=== PATIENT | male | born 1985 | race Caucasian/White ===

== ENCOUNTER 2017-07-18 09:48 | Emergency (ER) | payer OTHER ==
[~2017-07-18] VITALS: Wt 90.9 kg
[2017-07-18] MEDS ORDERED: SOD CHLORIDE 0.9% 1,000 ML IV STA (13:28)
[2017-07-18] MEDS ORDERED: morphine 10 MG INJ IV ONE (14:00)
[2017-07-18 14:22] LABS: BASOPHIL # 0.1 10^3/ul (0.0-0.1); BASOPHILS % 1.6 % (0.0-2.0); EOSINOPHILS # 0.5 10^3/ul (0.0-0.5); EOSINOPHILS % 7.3 % (0.0-7.0); HEMATOCRIT 46.4 % (42.0-52.0); HEMOGLOBIN 15.5 g/dl (14.0-18.0); LYMPHOCYTES # 2.3 10^3/ul (0.8-2.9); LYMPHOCYTES % 36.8 % (15.0-51.0); MEAN CORPUSCULAR HEMOGLOBIN 28.2 pg (29.0-33.0); MEAN CORPUSCULAR HGB CONC 33.4 g/dl (32.0-37.0); MEAN CORPUSCULAR VOLUME 84.4 fl (82.0-101.0); MEAN PLATELET VOLUME 9.4 fl (7.4-10.4); MONOCYTE # 0.6 10^3/ul (0.3-0.9); MONOCYTES % 9.1 % (0.0-11.0); NEUTROPHIL # 2.7 10^3/ul (1.6-7.5); NEUTROPHILS % 44.7 % (39.0-77.0); PLATELET COUNT 318 10^3/UL (140-415); RED CELL DISTRIBUTION WIDTH 12.3 % (11.5-14.5); WHITE BLOOD COUNT 6.1 10^3/ul (4.8-10.8)
[2017-07-18 14:41] LABS: ALBUMIN 4.2 g/dl (3.3-4.9); ALBUMIN/GLOBULIN RATIO 1.27; BILIRUBIN,INDIRECT 0.3 mg/dl (0-1.1); BILIRUBIN,TOTAL 0.3 mg/dl (0.2-1.3); CALCIUM 10.5 mg/dl (8.4-10.2); CREATININE 1.38 mg/dl (0.61-1.24); POTASSIUM 4.2 mmol/L (3.5-5.1); TOTAL PROTEIN 7.5 g/dl (6.1-8.1)
--- NOTE | 2017-07-18 15:10 | RADRPT ---
PROCEDURE: CT ABDOMEN AND PELVIS WITHOUT CONTRAST. CLINICAL INDICATION: Severe abdominal pain. Status post placement of left-sided renal stent. TECHNIQUE: CT scan of the abdomen and pelvis without contrast was performed on a multidetector hig h-resolution CT scanner. The patient was scanned without intravenous contrast. Coronal and sagittal reformatted images were obtained from the axial source images. Images were reviewed on a high-resol [employer] PACS workstation. The total exam CTDI equals 22.3 mGy and the total exam DLP equals 1314.7 mGy -cm. One or more of the following dose reduction techniques were used: Automated exposure control. Adjustment of the mA and/or kV according to patient size. Use of iterative reconstruction technique. DICOM images are available COMPARISON: None FINDINGS: CT abdomen: The lung bases are clear. The heart size is within limits. There is no significant pericardial effus ion. Hepatic morphology is within normal limits. Gallbladder is unremarkable. No evidence of intrahepatic or extrahepatic biliary dilatation. The spleen and pancreas are within normal limits. Both adrenal glands are within normal limits. Both kidneys are and normal anatomic position. There is a 3.7 mm and 4.4 mm non-obstructing stone wi thin the mid pole of the right kidney. Left-sided double-J ureteric stent is identified, which appea rs to be in place. No evidence of obstruction or hydronephrosis within both kidneys. No evidence of perinephric fluid collections. The visualized GI tract demonstrates normal caliber loops of small large bowel. No obstruction. Stoo l filled loops of large bowel suggestive of constipation. The appendix is within limits. The unenhanced aorta is unremarkable. There is retroperitoneal lymphadenopathy. CT pelvis: Bladder is identified, containing a double-J ureteric stent. There is mild sigmoid diverticulosis. N o significant free fluid. No same pelvic lymphadenopathy. The visualized osseous structures appear to be within limits. IMPRESSION: 1. 3.7 and 4.4 mm non-obstructing stones within the right kidney. No evidence of obstruction or hydr onephrosis. 2. Left-sided double-J ureteric stent in place. No evidence of obstruction or hydronephrosis. No adeel dence of perinephric fluid. 3. No evidence of bowel obstruction. The appendix is within normal limits. 4. No evidence of free fluid or free air. No gross focal fluid collections. RPTAT: AARR Dulce Gonzalez Physician Date Time Electronically viewed and signed by Dulce Gonzalez Physician on 07/18/2017 15:09 JL/
[2017-07-18 16:51] LABS: ADD UMIC YES; UR ASCORBIC ACID NEGATIVE (NEGATIVE); UR BILIRUBIN (Dip) NEGATIVE (NEGATIVE); UR BLOOD (Dip) 3+ mg/dL (NEGATIVE); UR CLARITY CLEAR (CLEAR); UR COLOR STRAW (YELLOW); UR GLUCOSE (Dip) NEGATIVE (NEGATIVE); UR KETONES (Dip) NEGATIVE (NEGATIVE); UR LEUKOCYTE ESTERASE (Dip) 1+ Leu/ul (NEGATIVE); UR NITRITE (Dip) NEGATIVE (NEGATIVE); UR RBC > 182 /HPF (0-5); UR SPECIFIC GRAVITY (Dip) 1.004 (1.003-1.030); UR TOTAL PROTEIN (Dip) 1+ mg/dl (NEGATIVE); UR UROBILINOGEN (Dip) NEGATIVE (NEGATIVE)
[2017-07-18] MEDS ORDERED: POLY17PO6 PO (16:58)
[2017-07-18] MEDS ORDERED: HYDR-902 PO (16:58)
[2017-07-18] MEDS ORDERED: ONDA4TAB14 PO (16:58)
[2017-07-18] MEDS ORDERED: morphine 4 MG/ML VIAL IV STA (17:12)
--- NOTE | 2017-07-18 17:28 | ERD ---
ER Documentation Chief Complaint Chief Complaint hematuria w blood clots and dysurea s/p kidney stent sat. HPI This 32-year-old male presents with hematuria passing some blood clots 4 days after he had a stent placed at an outside hospital. Renal stent was placed on his left side because of an 8 mm stone. He comes to this hospital because both his insurance prefers him to come to this hospital in did not get urology follow -up from the other facility. He had no infection at that time and is placed on antibiotic anyway treat is still taking his creatinine at that time was 1.8. He has some pain right lateral abdomen but mostly came because he is passing clots and is not sure if he still should be. He is coming by his father. ROS All systems reviewed and are negative except as per history of present illness. Medications Home Meds Active Scripts Polyethylene Glycol* (Miralax*) 17 Gm Powd.pack, 17 GM PO DAILY for CONSTIPATION , #7 Prov:VIET ANN DO 07/18/17 Ondansetron (Ondansetron Odt) 4 Mg Tab.rapdis, 4 MG PO Q6H Y for NAUSEA AND/OR VOMITING, #10 TAB Prov:VIET ANN DO 07/18/17 Hydrocodone/Acetaminophen ([place] 10-325 Tablet) 1 Each Tablet, 1 EACH PO Q6, # 20 TAB Prov:VIET ANN DO 07/18/17 PMhx/Soc History of Surgery: No Anesthesia Reaction: No Hx Neurological Disorder: No Hx Respiratory Disorders: No Hx Cardiac Disorders: No Hx Psychiatric Problems: No Hx Miscellaneous Medical Probl: Yes (renal stone (stent placed)) Hx Alcohol Use: No Hx Substance Use: No Hx Tobacco Use: No Smoking Status: Never smoker Physical Exam Vitals Vital Signs Date Time Temp Pulse Resp B/P Pulse Ox O2 Delivery O2 Flow Rate FiO2 07/18/17 15:50 76 18 133/83 98 Room Air 07/18/17 09:52 98.2 89 20 138/96 97 Physical Exam Const: [] Head: Atraumatic Eyes: Normal Conjunctiva ENT: Normal External Ears, Nose and Mouth. Neck: Full range of motion..~ No meningismus. Resp: Clear to auscultation bilaterally Cardio: Regular rate and rhythm, no murmurs Abd: Soft, non tender, non distended. Normal bowel sounds Skin: No petechiae or rashes Back: No midline or flank tenderness Ext: No cyanosis, or edema Neur: Awake and alert Psych: Normal Mood and Affect Result Diagram: 07/18/17 1356 07/18/17 1356 Results 24 hrs Laboratory Tests Test 07/18/17 13:56 07/18/17 16:20 White Blood Count 6.110^3/ul Red Blood Count 5.5010^6/ul Hemoglobin 15.5g/dl Hematocrit 46.4% Mean Corpuscular Volume 84.4fl Mean Corpuscular Hemoglobin 28.2pg Mean Corpuscular Hemoglobin Concent 33.4g/dl Red Cell Distribution Width 12.3% Platelet Count 53346^3/UL Mean Platelet Volume 9.4fl Neutrophils % 44.7% Lymphocytes % 36.8% Monocytes % 9.1% Eosinophils % 7.3% Basophils % 1.6% Nucleated Red Blood Cells % 0.0/100WBC Neutrophils # 2.710^3/ul Lymphocytes # 2.310^3/ul Monocytes # 0.610^3/ul Eosinophils # 0.510^3/ul Basophils # 0.110^3/ul Nucleated Red Blood Cells # 0.010^3/ul Sodium Level 139mmol/L Potassium Level 4.2mmol/L Chloride Level 97mmol/L Carbon Dioxide Level 33mmol/L Anion Gap 13 Blood Urea Nitrogen 13mg/dl Creatinine 1.38mg/dl Glucose Level 91mg/dl Calcium Level 10.5mg/dl Total Bilirubin 0.3mg/dl Direct Bilirubin 0.00mg/dl Indirect Bilirubin 0.3mg/dl Aspartate Amino Transf (AST/SGOT) 81IU/L Alanine Aminotransferase (ALT/SGPT) 113IU/L Alkaline Phosphatase 45IU/L Total Protein 7.5g/dl Albumin 4.2g/dl Globulin 3.30g/dl Albumin/Globulin Ratio 1.27 Lipase 88U/L Urine Color STRAW Urine Clarity CLEAR Urine pH 6.0 Urine Specific [place] 1.004 Urine Ketones NEGATIVEmg/dL Urine Nitrite NEGATIVEmg/dL Urine Bilirubin NEGATIVEmg/dL Urine Urobilinogen NEGATIVEmg/dL Urine Leukocyte Esterase 1+Mar[place]ruz/ul Urine Microscopic RBC > 182/HPF Urine Microscopic WBC 1/HPF Urine Hemoglobin 3+mg/dL Urine Glucose NEGATIVEmg/dL Urine Total Protein 1+mg/dl Current Medications Medications (Trade) Dose Ordered Sig/Martell Route PRN Reason Start Time Stop Time Status Last Admin Dose Admin Sodium Chloride (NS) 1,000 ml @ 1,000 mls/hr Q1H STAT IV 07/18/17 13:28 07/18/17 14:27 DC 07/18/17 14:08 Morphine Sulfate (morphine) 6 mg ONCE ONCE IV 07/18/17 14:00 07/18/17 14:01 DC 07/18/17 14:08 Morphine Sulfate (morphine) 4 mg ONCE STAT IV 07/18/17 17:12 07/18/17 17:13 DC 07/18/17 17:18 Procedures/MDM Hematuria is expected after procedure as well as some pain. No signs of anemia after passing clots for 4-1/2 days. Patient states that he stopped taking the [place] at home because it made him sleepy however was controlling the pain. Pain is easily controlled by morphine in the emergency room. I am going to discharge him with [place] 10 as well as Zofran as needed nausea. He and his father are already in the process of obtaining urology follow-up and were told it would take 7 days for the referral. Creatinine is decreasing fortunately. Patient feels much better here. No signs of 8 mm stone which may have ready past. Patient feels comfortable going home currently. I told him to return to emergency room for any concerning change. CT abdomen pelvis interpretation: Right-sided renal stones with left renal stent in place. No bowel obstruction, no free air, no abnormal fluid collection , no fractures. Departure Diagnosis: Primary Impression: Post-operative pain Additional Impressions: Hematuria Renal insufficiency Condition: Stable Patient Instructions: Hematuria Additional Instructions: Call your primary care doctor TOMORROW for an appointment during the next 2-3 days.See the doctor sooner or return here if your condition worsens before your appointment time. VIET ANN DO Jul 18, 2017 17:28
[2017-07-18 17:31] VITALS: BP 116/76; PULSE 78; RESP 18
== END 2017-07-18 17:35 | disposition home or self-care (01) ==
LOC: E/R 09:48
DX: G89.18 Other acute postprocedural pain (principal); N28.9 Disorder of kidney and ureter, unspecified
CPT/HCPCS: 36415; 74176; 80053; 81001; 83690; 85025; 87086; 96374; 96375; J2270; J7030; Z7502

== ENCOUNTER 2017-07-28 16:01 | Emergency (ER) | payer OTHER ==
[~2017-07-28] VITALS: Ht 177.8 cm; Wt 108.7 kg
[~2017-07-28 16:01] MED LIST: HYDR-902 PO; ONDA4TAB14 PO; POLY17PO6 PO
[2017-07-28 16:08] VITALS: Ht 177.8 cm; Wt 108.7 kg
[2017-07-28] MEDS ORDERED: KETOROLAC 30 MG INJ IV STA (16:49)
[2017-07-28] MEDS ORDERED: morphine 4 MG/ML VIAL IV STA (16:49)
[2017-07-28] MEDS ORDERED: SOD CHLORIDE 0.9% 1,000 ML IV STA (16:49)
[2017-07-28] MEDS ORDERED: ONDANSETRON 4 MG INJ IV STA (16:49)
[2017-07-28 17:42] LABS: BASOPHIL # 0.1 10^3/ul (0.0-0.1); BASOPHILS % 1.4 % (0.0-2.0); EOSINOPHILS # 0.4 10^3/ul (0.0-0.5); EOSINOPHILS % 4.5 % (0.0-7.0); HEMATOCRIT 44.5 % (42.0-52.0); HEMOGLOBIN 14.8 g/dl (14.0-18.0); LYMPHOCYTES # 3.5 10^3/ul (0.8-2.9); LYMPHOCYTES % 42.8 % (15.0-51.0); MEAN CORPUSCULAR HEMOGLOBIN 28.1 pg (29.0-33.0); MEAN CORPUSCULAR HGB CONC 33.3 g/dl (32.0-37.0); MEAN CORPUSCULAR VOLUME 84.4 fl (82.0-101.0); MEAN PLATELET VOLUME 9.5 fl (7.4-10.4); MONOCYTE # 0.7 10^3/ul (0.3-0.9); MONOCYTES % 8.5 % (0.0-11.0); NEUTROPHIL # 3.4 10^3/ul (1.6-7.5); NEUTROPHILS % 42.4 % (39.0-77.0); PLATELET COUNT 347 10^3/UL (140-415); RED BLOOD COUNT 5.27 10^6/ul (4.70-6.10); RED CELL DISTRIBUTION WIDTH 12.3 % (11.5-14.5); WHITE BLOOD COUNT 8.1 10^3/ul (4.8-10.8)
[2017-07-28 17:46] LABS: ADD UMIC YES; INR 0.89; PROTIME 12.1 Sec (11.9-14.9); PT RATIO 0.9; UR ASCORBIC ACID NEGATIVE (NEGATIVE); UR BACTERIA FEW /HPF (NONE SEEN); UR BILIRUBIN (Dip) NEGATIVE (NEGATIVE); UR BLOOD (Dip) 3+ mg/dL (NEGATIVE); UR CLARITY SLIGHTLY CLOUDY (CLEAR); UR COLOR YELLOW (YELLOW); UR GLUCOSE (Dip) NEGATIVE (NEGATIVE); UR KETONES (Dip) NEGATIVE (NEGATIVE); UR LEUKOCYTE ESTERASE (Dip) TRACE Leu/ul (NEGATIVE); UR NITRITE (Dip) NEGATIVE (NEGATIVE); UR RBC > 182 /HPF (0-5); UR SPECIFIC GRAVITY (Dip) 1.018 (1.003-1.030); UR TOTAL PROTEIN (Dip) 2+ mg/dl (NEGATIVE); UR UROBILINOGEN (Dip) NEGATIVE (NEGATIVE)
[2017-07-28 17:58] LABS: ALBUMIN 3.9 g/dl (3.3-4.9); ALBUMIN/GLOBULIN RATIO 1.39; BILIRUBIN,INDIRECT 0.1 mg/dl (0-1.1); BILIRUBIN,TOTAL 0.1 mg/dl (0.2-1.3); CALCIUM 9.2 mg/dl (8.4-10.2); CREATININE 1.37 mg/dl (0.61-1.24); POTASSIUM 3.9 mmol/L (3.5-5.1); TOTAL PROTEIN 6.7 g/dl (6.1-8.1)
--- NOTE | 2017-07-28 18:59 | RADRPT ---
PROCEDURE: CT SCAN OF THE ABDOMEN AND PELVIS NON CONTRAST CLINICAL INDICATION: Left flank pain TECHNIQUE: Utilizing the multi-slice spiral CT scanner, Transaxial images were obtained through the abdomen and pelvis without contrast. Additional sagittal, coronal, MPR images were also obtained. DICOM images are available Radiation Dose: CTDI vol 22.02 mGy, DLP 1292.15 mGy-cm. One of more of the following dose reduction techniques were utilized: -automatic exposure control -adjustment of the mA and/or kV according to patient size -Use of iterative reconstruction technique Contrast used: None COMPARISON: None FINDINGS: Limited slices through the lung bases are clear. CT Abdomen Enlarged fatty liver, distended stomach, normal spleen, enlarged pancreas is seen no peripancreatic fluid collection or mass lesions noted. Gallbladder appears unremarkable. Right kidney demonstrates two parenchymal 2 mm stones in the renal sinus without hydronephrosis. Left kidney J stent position is unchanged. There is a 4 mm calcification in the lower pole nathaniel. No hydronephrosis noted. Modera te stool noted in the large bowel with no free air or ascites seen. CT pelvis: Distal end of J stent is noted in the bladder. Rectosigmoid colon, prostate appears unre markable. Large amount of intra-abdominal fat is seen. No retroperitoneal adenopathy noted. No pelvic ascites seen. IMPRESSION: Unchanged right upper pole renal parenchymal stones without hydronephrosis Left J stent in good position. 4 mm calcification lower pole nathaniel seen. RPTAT: AAOO Physician Eduar Date Time Electronically viewed and signed by Physician Eduar on 07/28/2017 18:59 MB/
[2017-07-28] MEDS ORDERED: ONDA4TAB14 PO (19:40)
[2017-07-28] MEDS ORDERED: TRAM50TA2 PO (19:40)
[2017-07-28] MEDS ORDERED: CEPH-443 PO (19:40)
[2017-07-28 19:54] VITALS: BP 129/84; PULSE 80; RESP 20
--- NOTE | 2017-07-28 21:24 | ERD ---
ER Documentation Chief Complaint Chief Complaint lt flank pain HPI This patient is a 32-year-old male with past medical history of kidney stones with recent stent placement on the right, presenting for bilateral flank pain which is constant. Associated with hematuria. The patient was here 10 days ago for similar complaints and was found that he had nonobstructing stones bilaterally and slightly elevated creatinine. The patient has no other complaints currently. ROS All systems reviewed and are negative except as per history of present illness. Medications Home Meds Active Scripts Cephalexin* (Keflex*) 500 Mg Capsule, 500 MG PO TID for 7 Days, #21 CAP Prov:ARCHIE ODOM PA-C 07/28/17 Ondansetron (Ondansetron Odt) 4 Mg Tab.rapdis, 4 MG PO Q6H Y for NAUSEA AND/OR VOMITING, #10 TAB Prov:ARCHIE ODOM PA-C 07/28/17 Tramadol HCl (Tramadol HCl) 50 Mg Tablet, 50 MG PO Q4 Y for PAIN, #20 TAB Prov:ARCHIE ODOM PA-C 07/28/17 Polyethylene Glycol* (Miralax*) 17 Gm Powd.pack, 17 GM PO DAILY for CONSTIPATION , #7 Prov:VIET ANN DO 07/18/17 Ondansetron (Ondansetron Odt) 4 Mg Tab.rapdis, 4 MG PO Q6H Y for NAUSEA AND/OR VOMITING, #10 TAB Prov:VIET ANN DO 07/18/17 Hydrocodone/Acetaminophen ([place] 10-325 Tablet) 1 Each Tablet, 1 EACH PO Q6, # 20 TAB Prov:VIET ANN DO 07/18/17 Allergies Allergies: Coded Allergies: No Known Allergy (Unverified , 07/28/17) PMhx/Soc Medical and Surgical Hx: pt denies Surgical Hx History of Surgery: No Anesthesia Reaction: No Hx Neurological Disorder: No Hx Respiratory Disorders: No Hx Cardiac Disorders: No Hx Psychiatric Problems: No Hx Miscellaneous Medical Probl: Yes (renal stone (stent placed)) Hx Alcohol Use: No Hx Substance Use: No Hx Tobacco Use: No Smoking Status: Never smoker Physical Exam Vitals Vital Signs Date Time Temp Pulse Resp B/P Pulse Ox O2 Delivery O2 Flow Rate FiO2 07/28/17 19:54 80 20 129/84 98 Room Air 07/28/17 16:08 97.8 94 18 158/106 96 Physical Exam Const: Nontoxic, well appearing male in no acute distress. Head: Atraumatic Eyes: Normal Conjunctiva ENT: Normal External Ears, Nose and Mouth. Neck: Full range of motion..~ No meningismus. Resp: Clear to auscultation bilaterally Cardio: Regular rate and rhythm, no murmurs Abd: Soft, non tender, non distended. Normal bowel sounds. No McBurney's point tenderness. No rebound tenderness or guarding. Skin: No petechiae or rashes Back: Bilateral flank tenderness to palpation. Ext: No cyanosis, or edema Neur: Awake and alert Psych: Normal Mood and Affect Result Diagram: 07/28/17 1710 07/28/17 171 Results 24 hrs Laboratory Tests Test 07/28/17 17:10 White Blood Count 8.110^3/ul Red Blood Count 5.2710^6/ul Hemoglobin 14.8g/dl Hematocrit 44.5% Mean Corpuscular Volume 84.4fl Mean Corpuscular Hemoglobin 28.1pg Mean Corpuscular Hemoglobin Concent 33.3g/dl Red Cell Distribution Width 12.3% Platelet Count 99963^3/UL Mean Platelet Volume 9.5fl Neutrophils % 42.4% Lymphocytes % 42.8% Monocytes % 8.5% Eosinophils % 4.5% Basophils % 1.4% Nucleated Red Blood Cells % 0.0/100WBC Neutrophils # 3.410^3/ul Lymphocytes # 3.510^3/ul Monocytes # 0.710^3/ul Eosinophils # 0.410^3/ul Basophils # 0.110^3/ul Nucleated Red Blood Cells # 0.010^3/ul Prothrombin Time 12.1Sec Prothrombin Time Ratio 0.9 INR International Normalized Ratio 0.89 Activated Partial Thromboplast Time 27.0Sec Urine Color YELLOW Urine Clarity SLIGHTLY CLOUDY Urine pH 6.0 Urine Specific [place] 1.018 Urine Ketones NEGATIVEmg/dL Urine Nitrite NEGATIVEmg/dL Urine Bilirubin NEGATIVEmg/dL Urine Urobilinogen NEGATIVEmg/dL Urine Leukocyte Esterase TRACELeu/ul Urine Microscopic RBC > 182/HPF Urine Microscopic WBC 63/HPF Urine Bacteria FEW/HPF Urine Hemoglobin 3+mg/dL Urine Glucose NEGATIVEmg/dL Urine Total Protein 2+mg/dl Sodium Level 139mmol/L Potassium Level 3.9mmol/L Chloride Level 101mmol/L Carbon Dioxide Level 28mmol/L Anion Gap 14 Blood Urea Nitrogen 14mg/dl Creatinine 1.37mg/dl Glucose Level 146mg/dl Calcium Level 9.2mg/dl Total Bilirubin 0.1mg/dl Direct Bilirubin 0.00mg/dl Indirect Bilirubin 0.1mg/dl Aspartate Amino Transf (AST/SGOT) 41IU/L Alanine Aminotransferase (ALT/SGPT) 68IU/L Alkaline Phosphatase 48IU/L Total Protein 6.7g/dl Albumin 3.9g/dl Globulin 2.80g/dl Albumin/Globulin Ratio 1.39 Lipase 148U/L Current Medications Medications (Trade) Dose Ordered Sig/Martell Route PRN Reason Start Time Stop Time Status Last Admin Dose Admin Sodium Chloride (NS) 1,000 ml @ 1,000 mls/hr Q1H STAT IV 07/28/17 16:49 07/28/17 17:48 DC 07/28/17 17:17 Morphine Sulfate (morphine) 4 mg ONCE STAT IV 07/28/17 16:49 07/28/17 16:50 DC 07/28/17 17:18 Ondansetron HCl (Zofran Inj) 4 mg ONCE STAT IV 07/28/17 16:49 07/28/17 16:50 DC 07/28/17 17:18 Ketorolac Tromethamine (Toradol) 30 mg ONCE STAT IV 07/28/17 16:49 07/28/17 16:50 DC 07/28/17 17:18 Procedures/MDM Workup recently within the past 10 days for similar symptoms. The patient was placed on a stretcher, IV line established. The patient is given IV fluids, IV morphine, IV Zofran This is a 32-year-old male presenting to the emergency department complains of bilateral flank pain. The patient did have, IV Toradol. He was feeling significantly improved on reevaluation. CBC showed no signs of leukocytosis or anemia. Chemistry panel was within normal limits, except for creatinine which was elevated at 1.37, this is down trending since last visit. Urinalysis is concerning for mild, uncomplicated urinary tract infection. CT scan of the abdomen and pelvis without contrast showed unchanged right upper pole renal parenchymal stones without hydronephrosis. Left J stent in good position. 4 mm calcification lower pole calyx seen. Further report can be reviewed below. I did discuss his case with Dr. Kel Barker, attending ED physician who is in agreement with the plan for discharge with close urological follow-up. The patient was given copies of all of his results. Low suspicion for obstructing stone, acute abdomen, sepsis, or other emergent conditions. Patient was stable and appropriate for discharge and outpatient management with close urological follow-up. He was given prescriptions. No evidence of life-threatening pathology at time of discharge. Pt/family in agreement with discharge plan/diagnosis. Pt/family advised to return immediately with any new or worsening symptoms. Follow-up with primary care physician within the next 1-2 days. PROCEDURE: CT SCAN OF THE ABDOMEN AND PELVIS NON CONTRAST CLINICAL INDICATION: Left flank pain TECHNIQUE: Utilizing the multi-slice spiral CT scanner, Transaxial images were obtained through the abdomen and pelvis without contrast. Additional sagittal, coronal, MPR images were also obtained. DICOM images are available Radiation Dose: CTDI vol 22.02 mGy, DLP 1292.15 mGy-cm. One of more of the following dose reduction techniques were utilized: -automatic exposure control -adjustment of the mA and/or kV according to patient size -Use of iterative reconstruction technique Contrast used: None COMPARISON: None FINDINGS: Limited slices through the lung bases are clear. CT Abdomen Enlarged fatty liver, distended stomach, normal spleen, enlarged pancreas is seen no peripancreatic fluid collection or mass lesions noted. Gallbladder appears unremarkable. Right kidney demonstrates two parenchymal 2 mm stones in the renal sinus without hydronephrosis. Left kidney J stent position is unchanged. There is a 4 mm calcification in the lower pole nathaniel. No hydronephrosis noted. Moderate stool noted in the large bowel with no free air or ascites seen. CT pelvis: Distal end of J stent is noted in the bladder. Rectosigmoid colon, prostate appears unremarkable. Large amount of intra-abdominal fat is seen. No retroperitoneal adenopathy noted. No pelvic ascites seen. IMPRESSION: Unchanged right upper pole renal parenchymal stones without hydronephrosis Left J stent in good position. 4 mm calcification lower pole nathaniel seen. RPTAT: AAOO Physician Eduar Date Time Electronically viewed and signed by Kvng Silver Physician on 07/28/2017 18: 59 Departure Diagnosis: Primary Impression: Flank pain Additional Impressions: Urinary tract infection Urinary tract infection type: site unspecified Hematuria presence: without hematuria Qualified Code: N39.0 - Urinary tract infection without hematuria, site unspecified Renal insufficiency Condition: Fair Patient Instructions: Understanding Urinary Tract Infections (UTIs), Renal Insufficiency Referrals: [facility] YOU HAVE RECEIVED A MEDICAL SCREENING EXAM AND THE RESULTS INDICATE THAT YOU DO NOT HAVE A CONDITION THAT REQUIRES URGENT TREATMENT IN THE EMERGENCY DEPARTMENT. FURTHER EVALUATION AND TREATMENT OF YOUR CONDITION CAN WAIT UNTIL YOU ARE SEEN IN YOUR DOCTORS OFFICE WITHIN THE NEXT 1-2 DAYS. IT IS YOUR RESPONSIBILITY TO MAKE AN APPOINTMENT FOR FOLOW-UP CARE. IF YOU HAVE A PRIMARY DOCTOR --you should call your primary doctor and schedule an appointment IF YOU DO NOT HAVE A PRIMARY DOCTOR YOU CAN CALL OUR PHYSICIAN REFERRAL HOTLINE AT IF YOU CAN NOT AFFORD TO SEE A PHYSICIAN YOU CAN CHOSE FROM THE FOLLOWING [facility] [address] [facility]. [facility] [address] [facility] [facility] [address] [facility]. [facility] [address] [facility]. [facility] [address] [facility]. [facility]. [address] Additional Instructions: Call your primary care doctor TOMORROW for an appointment during the next 1-2 days.See the doctor sooner or return here if your condition worsens before your appointment time. Call your primary care doctor TOMORROW for an appointment during the next 1 WEEK.Tell the attendance secretary that you were referred from this facility. See the doctor sooner or return here if your condition worsens before your appointment time. ARCHIE ODOM PA-C Jul 28, 2017 21:24
== END 2017-07-28 19:54 | disposition home or self-care (01) ==
LOC: FTE 16:01
DX: N39.0 Urinary tract infection, site not specified (principal); N28.9 Disorder of kidney and ureter, unspecified
CPT/HCPCS: 36415; 74176; 80053; 81001; 83690; 85025; 85610; 85730; 96374; 96375; J1885; J2270; J2405; J7030; Z7502

== ENCOUNTER 2017-08-02 09:31 | Emergency (ER) | payer OTHER ==
[~2017-08-02] VITALS: Ht 175.3 cm; Wt 105.6 kg
[~2017-08-02 09:31] MED LIST changes: +CEPH-443 PO; +TRAM50TA2 PO
[2017-08-02 09:34] VITALS: Ht 175.3 cm; Wt 105.6 kg
[2017-08-02] MEDS ORDERED: ONDANSETRON 4 MG INJ IV STA (10:46)
[2017-08-02] MEDS ORDERED: SOD CHLORIDE 0.9% 1,000 ML IV STA (10:46)
[2017-08-02] MEDS ORDERED: ACETAMINOPHEN 500 MG TAB PO STA (10:46)
[2017-08-02] MEDS ORDERED: KETOROLAC 30 MG INJ IV STA (10:46)
[2017-08-02 11:35] LABS: BASOPHIL # 0.1 10^3/ul (0.0-0.1); BASOPHILS % 1.3 % (0.0-2.0); EOSINOPHILS # 0.1 10^3/ul (0.0-0.5); EOSINOPHILS % 1.4 % (0.0-7.0); HEMATOCRIT 45.5 % (42.0-52.0); HEMOGLOBIN 15.6 g/dl (14.0-18.0); LYMPHOCYTES # 0.8 10^3/ul (0.8-2.9); LYMPHOCYTES % 7.7 % (15.0-51.0); MEAN CORPUSCULAR HEMOGLOBIN 28.4 pg (29.0-33.0); MEAN CORPUSCULAR HGB CONC 34.3 g/dl (32.0-37.0); MEAN CORPUSCULAR VOLUME 82.7 fl (82.0-101.0); MEAN PLATELET VOLUME 9.6 fl (7.4-10.4); MONOCYTE # 1.1 10^3/ul (0.3-0.9); MONOCYTES % 10.7 % (0.0-11.0); NEUTROPHIL # 7.9 10^3/ul (1.6-7.5); NEUTROPHILS % 78.3 % (39.0-77.0); PLATELET COUNT 317 10^3/UL (140-415); RED CELL DISTRIBUTION WIDTH 12.4 % (11.5-14.5)
[2017-08-02 11:44] LABS: ADD UMIC YES; UR ASCORBIC ACID NEGATIVE (NEGATIVE); UR BACTERIA FEW /HPF (NONE SEEN); UR BILIRUBIN (Dip) NEGATIVE (NEGATIVE); UR BLOOD (Dip) 3+ mg/dL (NEGATIVE); UR CLARITY SLIGHTLY CLOUDY (CLEAR); UR COLOR YELLOW (YELLOW); UR GLUCOSE (Dip) NEGATIVE (NEGATIVE); UR KETONES (Dip) NEGATIVE (NEGATIVE); UR LEUKOCYTE ESTERASE (Dip) 1+ Leu/ul (NEGATIVE); UR NITRITE (Dip) NEGATIVE (NEGATIVE); UR RBC > 182 /HPF (0-5); UR SPECIFIC GRAVITY (Dip) 1.018 (1.003-1.030); UR TOTAL PROTEIN (Dip) 3+ mg/dl (NEGATIVE); UR UROBILINOGEN (Dip) NEGATIVE (NEGATIVE)
[2017-08-02 11:53] LABS: ALBUMIN 4.2 g/dl (3.3-4.9); ALBUMIN/GLOBULIN RATIO 1.27; BILIRUBIN,INDIRECT 0.3 mg/dl (0-1.1); BILIRUBIN,TOTAL 0.3 mg/dl (0.2-1.3); CALCIUM 10.3 mg/dl (8.4-10.2); CREATININE 1.4 mg/dl (0.61-1.24); POTASSIUM 4.2 mmol/L (3.5-5.1); TOTAL PROTEIN 7.5 g/dl (6.1-8.1)
--- NOTE | 2017-08-02 12:07 | RADRPT ---
PROCEDURE: Renal US. CLINICAL INDICATION: Left flank pain. TECHNIQUE: Multiple sonographic images of the kidneys and urinary bladder were obtained. The imag es were reviewed on a PACS workstation. COMPARISON: CT scan of the abdomen and pelvis dated 07/28/2017. FINDINGS: The right kidney measures 9.8 cm. The left kidney measures 10.6 cm. There is no renal mass. There is no right hydronephrosis. There is mild left hydronephrosis. The bilateral renal calculi see n on prior CT scan are not visualized with ultrasound. A left ureteral stent is noted. There is no renal calculus. Renal parenchymal thickness is normal bilaterally. Echogenicity is normal bilaterally. The perirenal regions are normal with no fluid collection or mass. The stent is noted in the bladder. The urinary bladder is otherwise unremarkable. IMPRESSION: 1. Mild left hydronephrosis. 2. Bilateral renal calculi seen on prior CT scan are not visualized with ultrasound. 3. Left ureteral stent. 4. Otherwise normal renal ultrasound. RPTAT: QQ .Stevo Bhatti MD, Date Time Electronically viewed and signed by .Stevo Bhatti MD, on 08/02/2017 12:06 .R/
--- NOTE | 2017-08-02 12:23 | QN ---
Documentation Comment My independent concise history is fever and flank pain. My pertinent physical exam findings are no acute distress. The plan is I offered the patient admission however he would prefer to go home at this time. The patient will be given Tamiflu and will continue his Keflex. He can follow-up with his primary doctor within 24 hours. He can return sooner for any worsening symptoms.. KAYLA CEDILLO MD Aug 02, 2017 12:23
[2017-08-02] MEDS ORDERED: ACET325T33 PO (12:25)
[2017-08-02] MEDS ORDERED: OSLT75C PO (12:25)
[2017-08-02] MEDS ORDERED: IBUP800T25 PO (12:25)
[2017-08-02 12:27] VITALS: BP 128/68; PULSE 125; RESP 18; TEMP 100.6
--- NOTE | 2017-08-02 12:57 | ERD ---
ER Documentation Chief Complaint Chief Complaint FEVER,FEVER,GEN BODY PAIN,COUGH X WEEK HPI 32-year-old male complaining of fever and generalized body aches. Patient has a history of a kidney stent. He was seen her on July 18 and July 28 and was diagnosed with urinary tract infection. Patient is taking cephalexin for UTI. Yesterday patient developed fever. Positive flu contact at home. Patient has coughing with no sore throat and mild nasal congestion. Denies vomiting. Denies chest pain or shortness of breath. ROS All systems reviewed and are negative except as per history of present illness. Medications Home Meds Active Scripts Oseltamivir Phosphate* (Tamiflu*) 75 Mg Capsule, 75 MG PO BID for 5 Days, CAP Prov:PETER CROW PA-C 08/02/17 Acetaminophen* (Tylenol*) 325 Mg Tablet, 2 TAB PO Q6 Y for PAIN AND OR ELEVATED TEMP, #20 TAB Prov:PETER CROW PA-C 08/02/17 Ibuprofen* (Motrin*) 800 Mg Tab, 800 MG PO Q6, #30 TAB Prov:PETER CROW PA-C 08/02/17 Cephalexin* (Keflex*) 500 Mg Capsule, 500 MG PO TID for 7 Days, #21 CAP Prov:ARCHIE ODOM PA-C 07/28/17 Ondansetron (Ondansetron Odt) 4 Mg Tab.rapdis, 4 MG PO Q6H Y for NAUSEA AND/OR VOMITING, #10 TAB Prov:ARCHIE ODOM PA-C 07/28/17 Tramadol HCl (Tramadol HCl) 50 Mg Tablet, 50 MG PO Q4 Y for PAIN, #20 TAB Prov:ARCHIE ODOM PA-C 07/28/17 Polyethylene Glycol* (Miralax*) 17 Gm Powd.pack, 17 GM PO DAILY for CONSTIPATION , #7 Prov:VIET ANN DO 07/18/17 Ondansetron (Ondansetron Odt) 4 Mg Tab.rapdis, 4 MG PO Q6H Y for NAUSEA AND/OR VOMITING, #10 TAB Prov:VIET ANN DO 07/18/17 Hydrocodone/Acetaminophen ([place] 10-325 Tablet) 1 Each Tablet, 1 EACH PO Q6, # 20 TAB Prov:VIET ANN DO 07/18/17 Allergies Allergies: Coded Allergies: No Known Allergy (Unverified , 07/28/17) PMhx/Soc History of Surgery: No Anesthesia Reaction: No Hx Neurological Disorder: No Hx Respiratory Disorders: No Hx Cardiac Disorders: No Hx Psychiatric Problems: No Hx Miscellaneous Medical Probl: Yes (renal stone (stent placed)) Hx Alcohol Use: No Hx Substance Use: No Hx Tobacco Use: No Physical Exam Vitals Vital Signs Date Time Temp Pulse Resp B/P Pulse Ox O2 Delivery O2 Flow Rate FiO2 08/02/17 12:27 100.6 125 18 128/68 95 Room Air 08/02/17 09:34 101.7 124 18 139/74 98 Physical Exam GENERAL: The patient is well-appearing, well-nourished, in no acute distress HEENT: Atraumatic. Conjunctivae are pink. Pupils equal, round, and reactive to light. There is no scleral icterus. Tympanic membranes clear bilaterally. Oropharynx clear. No nystagmus or photophobia. NECK: C-spine is soft and supple. There is no meningismus. There is no cervical lymphadenopathy. CHEST: Clear to auscultation bilaterally. There are no rales, wheezes or rhonchi. HEART: Regular rate and rhythm. No murmurs, clicks, rubs or gallops. No S3 or S4. ABDOMEN:Soft, nontender and nondistended. Good bowel sounds. No rebound or guarding. No gross peritonitis. No gross organomegaly or masses. No Velazco sign or McBurney point tenderness. BACK: No midline or flank tenderness. Result Diagram: 08/02/17 1120 08/02/17 1120 Results 24 hrs Laboratory Tests Test 08/02/17 11:05 08/02/17 11:20 Urine Color YELLOW Urine Clarity SLIGHTLY CLOUDY Urine pH 6.0 Urine Specific [place] 1.018 Urine Ketones NEGATIVEmg/dL Urine Nitrite NEGATIVEmg/dL Urine Bilirubin NEGATIVEmg/dL Urine Urobilinogen NEGATIVEmg/dL Urine Leukocyte Esterase 1+Maricruz/ul Urine Microscopic RBC > 182/HPF Urine Microscopic WBC 32/HPF Urine Bacteria FEW/HPF Urine Hemoglobin 3+mg/dL Urine Glucose NEGATIVEmg/dL Urine Total Protein 3+mg/dl White Blood Count 10.010^3/ul Red Blood Count 5.5010^6/ul Hemoglobin 15.6g/dl Hematocrit 45.5% Mean Corpuscular Volume 82.7fl Mean Corpuscular Hemoglobin 28.4pg Mean Corpuscular Hemoglobin Concent 34.3g/dl Red Cell Distribution Width 12.4% Platelet Count 84369^3/UL Mean Platelet Volume 9.6fl Neutrophils % 78.3% Lymphocytes % 7.7% Monocytes % 10.7% Eosinophils % 1.4% Basophils % 1.3% Nucleated Red Blood Cells % 0.0/100WBC Neutrophils # 7.910^3/ul Lymphocytes # 0.810^3/ul Monocytes # 1.110^3/ul Eosinophils # 0.110^3/ul Basophils # 0.110^3/ul Nucleated Red Blood Cells # 0.010^3/ul Sodium Level 142mmol/L Potassium Level 4.2mmol/L Chloride Level 104mmol/L Carbon Dioxide Level 27mmol/L Anion Gap 15 Blood Urea Nitrogen 12mg/dl Creatinine 1.40mg/dl Glucose Level 108mg/dl Calcium Level 10.3mg/dl Total Bilirubin 0.3mg/dl Direct Bilirubin 0.00mg/dl Indirect Bilirubin 0.3mg/dl Aspartate Amino Transf (AST/SGOT) 44IU/L Alanine Aminotransferase (ALT/SGPT) 83IU/L Alkaline Phosphatase 44IU/L Total Protein 7.5g/dl Albumin 4.2g/dl Globulin 3.30g/dl Albumin/Globulin Ratio 1.27 Lipase 98U/L Current Medications Medications (Trade) Dose Ordered Sig/Martell Route PRN Reason Start Time Stop Time Status Last Admin Dose Admin Sodium Chloride (NS) 1,000 ml @ 1,000 mls/hr Q1H STAT IV 08/02/17 10:46 08/02/17 11:45 DC 08/02/17 11:29 Ondansetron HCl (Zofran Inj) 4 mg ONCE STAT IV 08/02/17 10:46 08/02/17 10:49 DC 08/02/17 11:32 Ketorolac Tromethamine (Toradol) 30 mg ONCE STAT IV 08/02/17 10:46 08/02/17 10:49 DC 08/02/17 11:32 Acetaminophen (Tylenol Tab) 1,000 mg ONCE STAT PO 08/02/17 10:46 08/02/17 10:49 DC 12/21/17 11:33 Procedures/MDM DIAGNOSTIC IMAGING REPORT Patient: KAYLA FAYE : 1985 Age: 32 Sex: M MR #: [id number] DOS: 08/02/17 1046 Ordering MD: LATISHA CROW PA-C Location: [facility] Room/Bed: PROCEDURE: Renal US. CLINICAL INDICATION: Left flank pain. TECHNIQUE: Multiple sonographic images of the kidneys and urinary bladder were obtained. The images were reviewed on a PACS workstation. COMPARISON: CT scan of the abdomen and pelvis dated 07/28/2017. FINDINGS: The right kidney measures 9.8 cm. The left kidney measures 10.6 cm. There is no renal mass. There is no right hydronephrosis. There is mild left hydronephrosis. The bilateral renal calculi seen on prior CT scan are not visualized with ultrasound. A left ureteral stent is noted. There is no renal calculus. Renal parenchymal thickness is normal bilaterally. Echogenicity is normal bilaterally. The perirenal regions are normal with no fluid collection or mass. The stent is noted in the bladder. The urinary bladder is otherwise unremarkable. IMPRESSION: 1. Mild left hydronephrosis. 2. Bilateral renal calculi seen on prior CT scan are not visualized with ultrasound. 3. Left ureteral stent. 4. Otherwise normal renal ultrasound. ER Course: Positive flu 1L NS given in ED Tylenol and ibuprofen given in ED MDM: 32-year-old male complaining of flulike symptoms with a history of urinary tract infection and nephrolithiasis. I have low suspicion for septic stone. Patient's fever is likely associated with flu. Patient's urine was sent for culture today to ensure that infection adequately being treated with the cephalexin he is taking. I have low suspicion for other acute emergencies at this time. I have low suspicion for sepsis. This case was discussed with Dr. Barker who also saw patient at bedside. We felt patient was stable for outpatient management. Patient is discharged with strict ER precautions and told if symptoms change or worsen to immediately return to the emergency room. All questions answered discharge Departure Diagnosis: Primary Impression: Influenza Condition: Stable Patient Instructions: Influenza (Adult) Referrals: COMMUNITY CLINICS YOU HAVE RECEIVED A MEDICAL SCREENING EXAM AND THE RESULTS INDICATE THAT YOU DO NOT HAVE A CONDITION THAT REQUIRES URGENT TREATMENT IN THE EMERGENCY DEPARTMENT. FURTHER EVALUATION AND TREATMENT OF YOUR CONDITION CAN WAIT UNTIL YOU ARE SEEN IN YOUR DOCTORS OFFICE WITHIN THE NEXT 1-2 DAYS. IT IS YOUR RESPONSIBILITY TO MAKE AN APPOINTMENT FOR FOLOW-UP CARE. IF YOU HAVE A PRIMARY DOCTOR --you should call your primary doctor and schedule an appointment IF YOU DO NOT HAVE A PRIMARY DOCTOR YOU CAN CALL OUR PHYSICIAN REFERRAL HOTLINE AT IF YOU CAN NOT AFFORD TO SEE A PHYSICIAN YOU CAN CHOSE FROM THE FOLLOWING FORMERLY [facility] [address] [facility] [address] [facility] [facility] [address] [facility] [address] [facility] [address] [facility]. [address] Additional Instructions: FOLLOW UP WITH YOUR PRIMARY CARE PHYSICIAN TOMORROW.Return to this facility if you are not improving as expected. PETER CROW PA-C Aug 02, 2017 12:57
[2017-08-06] MEDS ORDERED: TRAM50TA2 PO (01:43)
[2017-08-06] MEDS ORDERED: CIPR500T4 PO (01:47)
== END 2017-08-02 13:20 | disposition home or self-care (01) ==
LOC: FTE 09:31
DX: J10.1 Influenza due to other identified influenza virus with other respiratory manifestations (principal)
CPT/HCPCS: 36415; 76775; 80053; 81001; 83690; 85025; 87086; 87400; 96374; 96375; J1885; J2405; J7030; Z7502; Z7610

== ENCOUNTER 2017-08-05 22:24 | Emergency (ER) | END 2017-08-06 02:05 | disposition home or self-care (01) ==

== ENCOUNTER 2017-08-19 15:44 | Emergency (ER) | END 2017-08-19 19:14 | disposition home or self-care (01) ==

== ENCOUNTER 2017-10-05 10:08 | Day surgery (SDC) | END 2017-10-05 16:20 | disposition home or self-care (01) ==

== ENCOUNTER 2018-02-19 00:59 | Inpatient (IN) | END 2018-02-22 14:16 | disposition home or self-care (01) | DRG 872 ==

== ENCOUNTER 2018-08-21 09:48 | Day surgery (SDC) | payer OTHER ==
[2018-08-19 17:10] VITALS: Ht 172.7 cm; Wt 95.5 kg
[2018-08-21] VITALS (15 sets, daily range): BP systolic 102–126; BP diastolic 54–87; PULSE 86–102; RESP 9–18
[~2018-08-21] VITALS: Ht 172.7 cm; Wt 95.5 kg
[~2018-08-21 09:48] MED LIST changes: +AMLO5TAB4 PO; +ATOR10TA65 PO; +CEFAZOLIN 1 GM/50 ML (PMX) 50 ML IVPB ONE; -CEPH-443 PO; +CHOL200078 PO; +DESFLURANE 15 MIN ONE; +ECHI380C2 PO; +FENO160T13 PO; +FLUT16SP17 NASAL; -HYDR-902 PO; +LORA10TA3 PO; +METOCLOPRAMIDE 10 MG INJ ONE; -ONDA4TAB14 PO; +ONDANSETRON 4 MG INJ ONE; -POLY17PO6 PO; +PSEU60TA21 PO; +ROCURONIUM 50 MG INJ ONE; +SULF-182 PO; -TRAM50TA2 PO
--- NOTE | 2018-08-21 10:01 | HPN ---
Date/Time of Note Date/Time of Note DATE: 08/21/18 TIME: 10:01 Interval H&P Admission Note Pt. seen H&P reviewed: No system changes SHARAN HADLEY MD Aug 21, 2018 10:01
--- NOTE | 2018-08-21 11:01 | PREAC ---
Date/Time of Note Date/Time of Note DATE: 08/21/18 TIME: 11:00 Anesthesia Eval and Record Evaluation Time Pre-Procedure Interview DATE: 08/21/18 TIME: 11:00 Age 33 Sex male NPO: 8 hrs Preoperative diagnosis Septal Deviation Planned procedure Septoplasty and Turbinate reduction Past Medical History Past Medical History: Includes Cardio: HTN, Dyslipidemia Surgery & Anesthesia Issues No known issue Meds Anticoagulation: No Beta Mikki within 24 hr: No Reason Beta Mikki not given: Pt. not on B-Mikki Reported Medications Pseudoephedrine Hcl* (Sudogest*) 60 Mg Tablet, 30 MG PO Q6 PRN for CONGESTION, TAB 10/05/17 Fluticasone Propionate* (Fluticasone Propionate* Nasal) 50 Mcg/Whately - 16 Gm Whately.susp, 2 SPRAYS NASAL DAILY, #1 BOTTLE TO EACH NOSTRIL 10/05/17 Loratadine* (Loratadine*) 10 Mg Tablet, 10 MG PO DAILY, #30 TAB 10/05/17 Fenofibrate, Micronized* (Fenofibrate*) 160 Mg Tablet, 160 MG PO DAILY, TAB 10/05/17 Amlodipine Besylate* (Norvasc*) 5 Mg Tablet, 5 MG PO DAILY, TAB 10/05/17 Cholecalciferol (Vitamin D3) (Vitamin D3) 2,000 Unit Tab.chew, 2000 UNIT PO DAILY, TAB.CHEW 10/05/17 Atorvastatin Calcium (Atorvastatin Calcium) 10 Mg Tablet, 10 MG PO QHS, #30 TAB 10/05/17 Discontinued Reported Medications Echinacea* (Echinacea*) 380 Mg Capsule, 380 MG PO DAILY, CAP 02/18/18 Discontinued Scripts Sulfamethoxazole/Trimethoprim (Sulfamethoxazole-Tmp Ds Tablet) 1 Each Tablet, 1 TAB PO BID for 5 Days, #10 TAB Prov:KEKE RAINEY MD 02/22/18 Current Medications Influenza Virus Vaccine Quadrival (Fluzone) 0.5 ml ONCE ONCE IM* ; Start 08/22/18 at 09:00; Stop 08/22/18 at 09:01 Meds reviewed: Yes Allergies Coded Allergies: No Known Allergy (Unverified , 08/21/18) Allergies Reviewed: Yes Labs/Studies Labs Reviewed: Reviewed by anesthesiologist test: N/A Studies: ECG (n/a), CXR (n/a) Pre-procedure Exam Last vitals Vital Signs Date Temp Pulse Resp B/P (MAP) Pulse Ox O2 O2 Flow FiO2 Time Delivery Rate 08/21/18 96.7 91 18 126/87 97 Room Air 09:53 (100) Airway: Adequate mouth opening, Adequate thyromental dist Mallampati: Mallampati II Teeth: Normal Lung: Normal Heart: Normal ASA Physical Status ASA physical status: 2 Emergency: None Planned Anesthetic General/MAC: ETT Planned Pain Management Parenteral pain med Pre-operative Attestations Prior to commencing anesthesia and surgery, the patient was re-evaluated, there was verification of: *The patient's identity *The results of appropriate recent lab work and preoperative vital signs *The above evaluation not changing prior to induction *Anesthetic plan, risk benefits, alternative and complications discussed with patient/family; questions answered; patient/family understands, accepts and wishes to proceed. ANAYELI VELÁSQUEZ MD Aug 21, 2018 11:01
[2018-08-21] MEDS ORDERED: HYDROmorphONE 1 MG/5 ML IV SYRINGE IV PRN ×3 (11:30)
[2018-08-21] MEDS ORDERED: DIPHENHYDRAMINE 50 MG INJ IV PRN (11:30)
[2018-08-21] MEDS ORDERED: FENTAnyl 50 MCG/ML VIAL IV PRN ×3 (11:30)
[2018-08-21] MEDS ORDERED: EPHEDrine SULFATE 50 MG/5 ML SYG IV PRN (11:30)
[2018-08-21] MEDS ORDERED: ONDANSETRON 4 MG INJ IV PRN (11:30)
[2018-08-21] MEDS ORDERED: OXYCODONE/ACETAMINOPHEN (5/325) TAB PO PRN ×2 (11:30)
[2018-08-21] MEDS ORDERED: LABETALOL HCL 20MG INJ IV PRN (11:30)
[2018-08-21] MEDS ORDERED: METOCLOPRAMIDE 10 MG INJ IV PRN (11:30)
[2018-08-21] MEDS ORDERED: MEPERIDINE 25 MG INJ IV PRN (11:30)
[2018-08-21] MEDS ORDERED: hydrALAzine 20 MG INJ IV PRN (11:30)
[2018-08-21] MEDS ORDERED: FENTAnyl 50 MCG/ML VIAL ONE (11:56)
[2018-08-21] MEDS ORDERED: PROPOFOL 20 ML ONE (11:56)
[2018-08-21] MEDS ORDERED: CEFAZOLIN 1 GM INJ ONE (11:56)
[2018-08-21] MEDS ORDERED: ROCURONIUM 50 MG INJ ONE (11:56)
[2018-08-21] MEDS ORDERED: MIDAZOLAM 1 MG/ML 2 ML INJ ONE (11:56)
[2018-08-21] MEDS ORDERED: LIDOCAINE 1%/EPI 30 ML INJ ONE ×2 (12:07→13:19)
[2018-08-21] MEDS ORDERED: BACITRACIN 0.9 GM OINT ONE (12:07)
[2018-08-21] MEDS ORDERED: KETOROLAC 30 MG INJ ONE (12:45)
[2018-08-21] MEDS ORDERED: ONDANSETRON 4 MG INJ ONE (12:45)
[2018-08-21] MEDS ORDERED: METOCLOPRAMIDE 10 MG INJ ONE (12:45)
[2018-08-21] MEDS ORDERED: DEXAMETHASONE 4 MG/ML 5 ML INJ ONE (12:45)
[2018-08-21] MEDS ORDERED: SUGAMMADEX SODIUM 200 MG/2 ML VIAL IV ONE (13:10)
--- NOTE | 2018-08-21 13:39 | HPN ---
Date/Time of Note Date/Time of Note DATE: 08/21/18 TIME: 13:38 Interval H&P Admission Note Pt. seen H&P reviewed: No system changes SHARAN HADLEY MD Aug 21, 2018 13:39
--- NOTE | 2018-08-21 13:41 | SIPON ---
Date/Time of Note Date/Time of Note DATE: 08/21/18 TIME: 13:39 Operative Report Preoperative Diagnosis 1. Chronic sinusitis with nasal polyposis 2. Deviated nasal septum 3. Inferior turbinate hypertrophy Postoperative Diagnosis Same Operation/Procedure Performed 1. Septoplasty 2. Inferior turbinate reduction 3. Bilateral nasal sinus endoscopy with total ethmoidectomy 4. Bilateral nasal sinus endoscopy with maxillary antrostomy and removal of tissue Surgeon see signature line web assistant None Anesthesia: general Estimated blood loss: 0 - 10 ml's Transfusion Required none Specimen Left and right sinus contents, septum Grafts/Implants none Complications none SHARAN HADLEY MD Aug 21, 2018 13:41
--- NOTE | 2018-08-21 13:50 | OPR ---
Date/Time of Note Date/Time of Note DATE: 08/21/18 TIME: 13:41 Operative Report Procedure Date: Aug 21, 2018 Preoperative Diagnosis 1. Chronic sinusitis with nasal polyposis 2. Deviated nasal septum 3. Inferior turbinate hypertrophy Postoperative Diagnosis Same Operation/Procedure Performed 1. Septoplasty 2. Inferior turbinate reduction 3. Bilateral nasal sinus endoscopy with total ethmoidectomy 4. Bilateral nasal sinus endoscopy with maxillary antrostomy and removal of tissue Surgeon see signature line Licensed Pharmacist None Anesthesia Type: general Estimated Blood Loss: minimal Transfusion none Specimen Left and right sinus contents, septum Grafts/Implants none Complications none Pt Condition Post Procedure: stable Disposition: PACU Indications The patient is a 33-year-old male with a history of chronic sinusitis and nasal obstruction which has been refractory to medical management. The risks, benefits, and alternatives of surgery were discussed with the patient. The risks included but not limited to bleeding, infection, scar, CSF leak, orbital injury, septal perforation, no improvement in symptoms, recurrence of polyps, need for further medical management, and pain. He understood this and signed consent. Procedure Description After informed consent was obtained, the patient was brought back to operating room suite. He was intubated by anesthesia and sedated. The head and face were prepped and draped in usual sterile fashion. Moose-Synephrine soaked cottonoids were inserted to nasal cavity and left for several minutes and then removed. 1% lidocaine with epinephrine was then injected into the nasal septum, inferior turbinates, middle turbinates and uncinate processes and sinus location of sphenopalatine arteries. A combination of 0 and 30 degree endoscopes were used for the case. Beginning first on the left side, the endoscope was used to evaluate the sinuses. The middle turbinate was medialized. There was polypoid degeneration of the middle turbinate and this was biopsied. Polypoid tissue was debrided off of the middle turbinate structure. A large polyp was removed posteriorly. A Sanjay elevator was then used to take down the uncinate process. The microdebrider was then used to complete the uncinectomy. The maxillary ostium was widened with the microdebrider. The ethmoid bulla was then entered at its most inferior medial aspect and opened. Dissection proceeded posteriorly identifying the most posterior ethmoid air cell and then moving anteriorly along the skull base. Care was taken not to violate superiorly towards the skull base or laterally towards the lamina papyracea. Ethmoid air cells were taken down using the microdebrider from a posterior to anterior fashion until the frontal sinus recess was reached. I then moved to the right side, the endoscope was used to evaluate the sinuses. The middle turbinate was medialized. There was polypoid degeneration of the middle turbinate and this was biopsied. Polypoid tissue was debrided off of the middle turbinate structure. A large polyp was removed posteriorly. A Sampson elevator was then used to take down the uncinate process. The microdebrider was then used to complete the uncinectomy. The maxillary ostium was widened with the microdebrider. The ethmoid bulla was then entered at its most inferior medial aspect and opened. Dissection proceeded posteriorly identifying the most posterior ethmoid air cell and then moving anteriorly along the skull base. Care was taken not to violate superiorly towards the skull base or laterally towards the lamina papyracea. Ethmoid air cells were taken down using the microdebrider from a posterior to anterior fashion until the frontal sinus recess was reached. A right Jose incision was made with a 15 blade. A mucoperiosteal and mucoperichondrial flaps were elevated. The inferior portion of the quadrangular cartilage and maxillary crest were removed using Norma forceps. By doing this, the superior aspect of the septum fell back towards midline. The incision was closed with interrupted 3-0 chromic suture. A stab incision was made under the heads of both inferior turbinates. Mucoperiosteal flaps were elevated. Norma forceps were used to remove inferior turbinate bone. Bipolar cautery was applied were needed. The sinuses were then irrigated with saline and suctioned. Nasal pore was placed in both ethmoid cavities. A Silastic Solorio splints coated in antibiotic ointment was then placed bilaterally and secured with a 3-0 Prolene suture. The stomach was then suctioned. The patient handed over to anesthesia. The patient was extubated and brought to the recovery room in stable condition. SHARAN HADLEY MD Aug 21, 2018 13:49
--- NOTE | 2018-08-21 13:56 | PAC ---
Date/Time of Note Date/Time of Note DATE: 08/21/18 TIME: 13:56 Post-Anesthesia Notes Post-Anesthesia Note Last documented vital signs Vital Signs Date Temp Pulse Resp B/P (MAP) Pulse Ox O2 O2 Flow FiO2 Time Delivery Rate 08/21/18 99.1 91 18 126/87 97 Room Air 14:05 (100) Activity: WNL Respiratory function: WNL Cardiovascular function: WNL Mental status: Baseline Pain reasonably controlled: Yes Hydration appropriate: Yes Nausea/Vomiting absent: Yes ANAYELI VELÁSQUEZ MD Aug 21, 2018 13:56
[2018-08-21] MEDS ORDERED: BACITRACIN/POLYMYXIN 28.35 GM OINT TOP ONE (14:15)
[2018-08-22] MEDS ORDERED: INFLUENZA VIRUS VACCINE 0.5 ML (DISPENSING) IM* ONE (09:00)
== END 2018-08-21 16:49 | disposition home or self-care (01) ==
LOC: SDS 09:48
PROVIDERS: ATTEND Otolaryngology
DX: J34.2 Deviated nasal septum (principal); J34.3 Hypertrophy of nasal turbinates; J32.8 Other chronic sinusitis
CPT/HCPCS: 30140; 30520; 31255; 31256; J0690; J1100; J1170; J1885; J2175; J2250; J2405; J2765; J3010; Z7512; Z7610; 88300; 88304